=== PATIENT | female | born 1990 | race Caucasian/White ===

== ENCOUNTER 2024-07-27 00:50 | Emergency (ER) | payer BC ==
[~2024-07-27] VITALS: Ht 162.6 cm; Wt 84.4 kg
[2024-07-27 00:57] VITALS: O2SAT 100
[2024-07-27 01:09] VITALS: BP 133/93; PULSE 74; RESP 12; TEMP 98.1; O2SAT 100
[2024-07-27] MEDS ORDERED: TETR15DR17 OP (01:57)
== END 2024-07-27 04:19 | disposition home or self-care (01) ==
LOC: ER 00:50
DX: H10.213 Acute toxic conjunctivitis, bilateral (principal)
CPT/HCPCS: 99282